=== PATIENT | female | born 1965 | race Caucasian/White ===

== ENCOUNTER 2019-03-25 10:34 | Emergency (ER) | payer OTHER, SELFPAY ==
--- NOTE | 2019-03-25 10:53 | ED.GENADULT ---
HPI - General Adult General Chief complaint: Upper Respiratory Infection Stated complaint: Sore Throat Time Seen by Provider: 03/25/19 11:01 Source: patient Mode of arrival: ambulatory Limitations: no limitations History of Present Illness HPI narrative: 53-year-old female patient presents to the [facility] with complaints of a sore throat that started yesterday. Patient denies any fevers that she is aware of. Patient states she has had a little bit of a stuffy nose runny nose and some drainage to the back the throat with a mild cough. Patient denies any chest pain or shortness of breath. Patient denies taking thing for her symptoms today. Patient states that she did get a flu shot this year. Patient denies being a smoker. Related Data Home Medications Medication Instructions Recorded Confirmed gabapentin 300 mg PO TID 03/25/19 03/25/19 hydrochlorothiazide 12.5 mg PO DAILY 03/25/19 03/25/19 metoprolol succinate 100 mg PO Q12H 03/25/19 03/25/19 Allergies Allergy/AdvReac Type Severity Reaction Status Date / Time No Known Allergies Allergy Verified 03/25/19 11:09 Review of Systems Review of Systems: Narrative: CONSTITUTIONAL: Denies fever, chills, or sweats. EYES: Denies visual changes, redness, or discharge. ENT: Positive rhinorrhea, congestion, sore throat, denies otalgia. CARDIOVASCULAR: Denies chest pain, palpitations, or edema. RESPIRATORY: Positive mild cough, denies dyspnea. GASTROINTESTINAL: Denies abdominal pain, nausea, vomiting, or diarrhea. GENITOURINARY: Denies dysuria or hematuria. SKIN: Denies rash or itching. MUSCULOSKELETAL: Denies back pain, joint pain, or myalgia. NEUROLOGIC: Denies headache, numbness, or weakness. PSYCHIATRIC: Denies anxiety or depression. [facility] Past Medical History Medical History (Updated 03/25/19 @ 11:18 by MAGUI Lemus) Anxiety Depression Hypercholesterolemia Hypertension Neuropathy Surgical History Surgical History (Updated 03/25/19 @ 11:11 by MAGUI Lemus) History of appendectomy History of cholecystectomy History of hysterectomy Hx of tonsillectomy Comments At the time of my signature I agree with nursing past medical history, surgical, social, and family history. There is no relevant family history pertinent to the presenting complaint. Exam Narrative: Exam Narrative: GENERAL: Well-appearing, well-nourished, and in no acute distress. HEAD: Normocephalic, atraumatic. Slight tenderness noted to maxillary sinuses on palpation. EYES: PERRLA and EOMI. ENT: Nares with erythema and edema noted bilaterally., no rhinorrhea or epistaxis. Mucous membranes moist. Posterior pharynx with some swelling and redness noted to the uvula. Bilateral TMs are clear with no erythema or foreign bodies in the canal. NECK: Supple. No lymphadenopathy CHEST: Clear to auscultation. No respiratory distress. HEART: Regular rate and rhythm. No murmur heard. Normal peripheral pulses. ABDOMEN: Soft, nontender, nondistended, normal active bowel sounds. EXTREMITIES: Normal range of motion. No edema. SKIN: Warm, dry, no rash. NEURO: No focal deficits. Alert and oriented x3. Course Reevaluation(s) Reevaluation #1: Notify patient that she is negative today for strep. Discussed with her this is most likely due to a virus or some sinus drainage that is causing her symptoms. Discussed with patient she can take an [id number] antihistamine as well as Flonase to help with those symptoms of drainage. Discussed with her she can do warm salt water gargles, hot tea and honey and Tylenol ibuprofen for the sore throat pain. Patient verbalized understanding denies any other questions or concerns at this time. Date: 03/25/19 Time: 11:18 Vital Signs Vital signs: Vital Signs Temperature 36.8 C 03/25/19 10:56 Pulse Rate 63 03/25/19 10:56 Respiratory Rate 14 03/25/19 10:56 Blood Pressure 141/81 H 03/25/19 10:56 Pulse Oximetry 98 03/25/19 10:56 Temperature 36
[2019-03-25 10:56] VITALS: BP 141/81; PULSE 63; RESP 14; TEMP 36.8; O2SAT 98
== END 2019-03-25 11:27 | disposition home or self-care (01) ==
PROVIDERS: Emergency Provider Nurse Practitioner Family
DX: J06.9 Acute upper respiratory infection, unspecified (principal); I10 Essential (primary) hypertension; E78.5 Hyperlipidemia, unspecified
CPT/HCPCS: 87081; 87880; 99213; G0463

== ENCOUNTER 2019-09-19 08:56 | Outpatient (CLI) | payer OTHER, SELFPAY | END 2019-09-19 08:57 | disposition home or self-care (01) | LOC: ANHAUDIO 08:58 | DX: H91.23 Sudden idiopathic hearing loss, bilateral (principal) | CPT/HCPCS: 92557; 92567 ==

== ENCOUNTER 2019-10-08 12:44 | Outpatient (RCR) | payer OTHER, SELFPAY | END 2019-10-08 23:59 | disposition home or self-care (01) | LOC: ANHAUDIO 12:44 | PROVIDERS: Visit Provider Family Medicine | DX: Z46.1 Encounter for fitting and adjustment of hearing aid (principal) | CPT/HCPCS: V5160; V5261; V5264 ==

== ENCOUNTER 2020-04-01 13:37 | Outpatient (RCR) | payer OTHER, SELFPAY | END 2020-06-30 23:59 | disposition home or self-care (01) | LOC: ANHBWCAUD 13:37 | PROVIDERS: PCP Family Medicine; Visit Provider Family Medicine | DX: Z46.1 Encounter for fitting and adjustment of hearing aid (principal) | CPT/HCPCS: 99199 ==

== ENCOUNTER 2022-11-04 15:32 | Emergency (ER) | payer MEDICAID, SELFPAY ==
--- NOTE | ~2022-11-04 | XR_ITS ---
EXAMINATION: XR ankle RT min 3V DATE: 11/04/2022 15:59 INDICATION: Right ankle pain. TECHNIQUE: 4 views of right ankle were obtained. COMPARISON: Right foot radiographs 03/30/17 FINDINGS: Bone alignment is normal. No fracture. There is mild midfoot osteoarthritis. There are enth esophytes at the posterior and plantar aspects of calcaneal tuberosity. IMPRESSION: 1. Mild midfoot osteoarthritis. Reviewed, dictated and finalized at location A.
[2022-11-04 15:45] VITALS: BP 139/86; PULSE 63; RESP 16; TEMP 36.4; O2SAT 99
--- NOTE | 2022-11-04 16:03 | ED.LOWEXIN ---
HPI - Extremity Injury (Lower) General Chief Complaint: Extremity Injury, Lower Stated Complaint: right ankle pain Time Seen by Provider: 11/04/22 16:04 Source: patient Mode of arrival: ambulatory Limitations: no limitations History of Present Illness HPI Narrative: 57-year-old female with hx HTN and neuropathy presented for complaint of right posterior ankle pain. Onset over 2 months. Pain is only when walking. She denies known injury or excessive use. She denies bruising, swelling. has taken an occasional pain pill. She denies numbness, tingling, weakness. She states she cannot tolerate the back of the ankle touching the mattress at night. Wearing supportive sandals because tennis shoes rub the back of the ankle as well. Related Data Home Medications Medication Instructions Recorded Confirmed gabapentin 300 mg capsule 300 mg PO TID 03/25/19 03/25/19 hydrochlorothiazide 12.5 mg tablet 12.5 mg PO DAILY 03/25/19 03/25/19 metoprolol succinate 100 mg 100 mg PO Q12H 03/25/19 03/25/19 tablet,extended release 24 hr hydrocodone 5 mg-acetaminophen 325 tablet 11/04/22 mg tablet lorazepam 0.5 mg tablet mg 11/04/22 metoprolol tartrate 100 mg tablet mg 11/04/22 oxybutynin chloride 5 mg tablet mg 11/04/22 pravastatin 40 mg tablet mg 11/04/22 risperidone 2 mg tablet mg 11/04/22 sertraline 100 mg tablet mg 11/04/22 tramadol 50 mg tablet mg 11/04/22 trazodone 100 mg tablet mg 11/04/22 Allergies Allergy/AdvReac Type Severity Reaction Status Date / Time No Known Allergies Allergy Verified 03/25/19 11:09 Review of Systems Review of Systems: CONSTITUTIONAL: Denies body aches, fever, chills EYES: Denies visual changes ENT: Denies rhinorrhea, congestion CARDIOVASCULAR: Denies chest pain, palpitations, or edema. RESPIRATORY: Denies cough or dyspnea. GASTROINTESTINAL: Denies abdominal pain, nausea, vomiting, or diarrhea. SKIN: Denies rash, itching, or wounds. MUSCULOSKELETAL: Reports right posterior ankle pain Denies back pain, joint pain, or myalgia. NEUROLOGIC: Denies headache, numbness, tingling, or weakness. All systems reviewed & are unremarkable except as noted in HPI and below PMFSH Past Medical History Medical History Anxiety Depression Hypercholesterolemia Hypertension Neuropathy Surgical History Surgical History History of appendectomy History of cholecystectomy History of hysterectomy Hx of tonsillectomy Comments At time of signature, I have reviewed and agree with nursing past medical, surgical, social and family history unless otherwise noted. Please see nursing chart for further information. There is no relevant family history pertinent to the presenting complaint Exam Narrative: GENERAL: Well-appearing, well-nourished, and in no acute distress. HEAD: Normocephalic, atraumatic. CHEST: Speaks in full sentences. No respiratory distress. HEART: Regular rate and rhythm. Normal and equal peripheral pulses. EXTREMITIES: Right posterior ankle tender at insertion site of achilles; right foot has normal strength and sensation, normal range of motion at ankle without pain reported. No swelling redness, or ecchymosis, No open wounds, or obvious deformity; alignment normal, pulse palpable and equal bilaterally, skin warm, dry, pink. Capillary refill less than 3 seconds. SKIN: Warm, dry, no rash. NEURO: Alert and oriented x3. PSYCH: Normal mood and affect Course Course Emergency Course: Patient is aware of diagnosis, understands and agrees to treatment plan. Anticipatory guidance given. Patient agrees to follow-up as directed and is aware of reasons to seek care at the emergency department. Portions of this record may have been created with voice recognition software Level of Care: Express Care Visit Vital Signs Vital signs: Vital Signs Temperature 97.5 F L
== END 2022-11-04 16:24 | disposition home or self-care (01) ==
PROVIDERS: Emergency Provider Nurse Practitioner Family; PCP Family Medicine
DX: M76.61 Achilles tendinitis, right leg (principal); E78.00 Pure hypercholesterolemia, unspecified; I10 Essential (primary) hypertension; G62.9 Polyneuropathy, unspecified
CPT/HCPCS: 73610; 99213; G0463

== ENCOUNTER 2024-01-20 14:05 | Emergency (ER) | payer MEDICARE, SELFPAY ==
[2024-01-20 14:26] VITALS: BP 135/96; PULSE 70; RESP 18; TEMP 37.1; O2SAT 97
--- NOTE | 2024-01-20 14:30 | ED_ITS ---
HPI - URI/Sore Throat General Chief Complaint: Upper Respiratory Infection Stated Complaint: Sinus Problem/Cough/Vomiting Time Seen by Provider: 01/20/24 14:30 Source: patient and RN notes reviewed Mode of arrival: ambulatory Limitations: no limitations History of Present Illness HPI Narrative: 58-year-old female presented for complaint headache, body aches, sinus pressure/congestion, cough, Nausea vomiting, fever/chills. onset 3 days. last emesis was earlier today.Denies Abdominal pain, sob, wheezing, chest pain, palpitations or lethargy. She is taking [id number] medicine for symptoms. MD elicited complaint: cough Related Data Home Medications Medication Instructions Recorded Confirmed hydrochlorothiazide 12.5 mg tablet 12.5 mg PO DAILY 03/25/19 01/20/24 metoprolol succinate 100 mg 100 mg PO Q12H 03/25/19 01/20/24 tablet,extended release 24 hr oxybutynin chloride 5 mg tablet 5 mg PO DAILY 11/04/22 01/20/24 pravastatin 40 mg tablet 40 mg PO BID 11/04/22 01/20/24 risperidone 2 mg tablet 2 mg PO DAILY 11/04/22 01/20/24 trazodone 100 mg tablet mg 11/04/22 meloxicam 15 mg tablet 15 mg PO DAILY PRN Dizziness Or 01/20/24 01/20/24 Vertigo sertraline 100 mg tablet 100 mg PO DAILY 01/20/24 01/20/24 Allergies Allergy/AdvReac Type Severity Reaction Status Date / Time No Known Allergies Allergy Verified 03/25/19 11:09 Review of Systems Review of Systems: CONSTITUTIONAL: Endorses malaise, chills, sweats, fever EYES: Denies visual changes, redness, or discharge ENT: Reports rhinorrhea, congestion, sinus pain, otalgia, sore throat CARDIOVASCULAR: Denies chest pain, palpitations, edema RESPIRATORY: Reports cough, post nasal drainage. Denies dyspnea GASTROINTESTINAL: Denies abdominal pain, reports nausea, vomiting MUSCULOSKELETAL: Endorses myalgia PMFSH Past Medical History Medical History Anxiety Depression Hypercholesterolemia Hypertension Neuropathy Surgical History Surgical History History of appendectomy History of cholecystectomy History of hysterectomy Hx of tonsillectomy Exam Narrative: GENERAL: mildly Ill-appearing, nontoxic no acute distress. EYES: PERRLA, conjunctivae clear ENT: Mucous membranes moist. TMs pearly wan with dull light reflex bilaterally; no tragal tenderness. Oropharynx erythematous without lesions or exudate, no drooling, no hoarseness, no trismus, uvula midline. No tripod positioning, muffled voice, soft palate or pharyngeal wall bulging NECK: Supple. No lymphadenopathy CHEST: Clear to auscultation, breath sounds equal. 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 No wheezing, rhonchi, rales, or stridor. No respiratory distress, speaks in full sentences. HEART: Regular rate and rhythm. No murmur heard. SKIN: Warm, dry, no rash. NEURO: Alert and oriented x3. PSYCH: Normal mood and affect Course Course Emergency Course: Patient is aware of diagnosis, understands and agrees to treatment plan. Anticipatory guidance given. Patient agrees to follow-up as directed and is aware of reasons to seek care at the emergency department. Portions of this record may have been created with voice recognition software Level of Care: Express Care Visit Vital Signs Vital signs: Vital Signs Temperature 98.8 F 01/20/24 14:26 Pulse Rate 70 01/20/24 14:26 Respiratory Rate 18 01/20/24 14:26 Blood Pressure 135/96 H 01/20/24 14:26 Pulse Oximetry 97 01/20/24 14:26 Temperature 98.8 F 01/20/24 14:26 Pulse Rate 70 01/20/24 14:26 Respiratory Rate 18 01/20/24 14:26 Blood Pressure 135/96 H 01/20/24 14:26 Pulse Oximetry 97 01/20/24 14:26 reviewed MDM - URI/Sore Throat MDM Narrative Medical decision making narrative: POS covid. Discussed physical exam findings. Advised supportive measures and signs/symptoms to go to the ER. Pt is appropriate for outpt treatment and f/u. Differential Diagnosis Differential diagnosis: Likely upper respiratory infection, sinusitis and viral infection Lab Data Labs: Lab Results 01/20/24 Range/Units 14:40 POC Influenza A Ag Negative (Negative) POC Influenza B Ag Negative (Negative) POC SARS CoV-2 Ag Positive (Negative) Discharge Plan Discharge Clinical Impression: COVID-19 Patient Disposition: Home, Self-Care Condition: Stable Instructions: COVID-19 (Coronavirus Disease 2019) (ED) Additional Instructions: Your rapid COVID test was positive today. The following updated recommendations have been made by the CDC and local Health Departments, regarding COVID-19: - When people get sick with a respiratory virus, they stay home and away from others. - Return to normal activities when, for at least 24 hours, symptoms are improving overall, and if a fever was present, it has been gone without use of a fever-reducing medication. - Once people resume normal activities, they are encouraged to take additional prevention strategies for the next 5 days to curb disease spread, such as taking more steps for laboratory equipment cleaner air, enhancing hygiene practices, wearing a well-fitting mask, keeping a distance from others, and/or getting tested for respiratory viruses. - Enhanced precautions are especially important to protect those most at risk for severe illness, including those over 65 and people with weakened immune systems. Rest, stay hydrated. Tylenol and ibuprofen every 8 hours as needed Flonase/nasal spray, Zyrtec, cough syrup cold/flu medications for symptoms as needed Follow up with your primary care provider, call to schedule an appointment. Go to the ER for worsening symptoms or concerns. Prescriptions: New prednisone 50 mg tablet 50 mg PO DAILY Qty: 5 0RF ondansetron 4 mg tablet,disintegrating 4 mg PO Q8H PRN (Reason: nausea and vomiting) Qty: 20 0RF No Action sertraline 100 mg tablet 100 mg PO DAILY meloxicam 15 mg tablet 15 mg PO DAILY PRN (Reason: Dizziness Or Vertigo) metoprolol succinate 100 mg Tablet Extended Release 24 Hr 100 mg PO Q12H gabapentin 300 mg Capsule 300 mg PO TID hydrochlorothiazide 12.5 mg Tablet 12.5 mg PO DAILY hydrocodone-acetaminophen 5-325 mg tablet pravastatin 40 mg tablet 40 mg PO BID tramadol 50 mg tablet risperidone 2 mg tablet 2 mg PO DAILY lorazepam 0.5 mg tablet trazodone 100 mg tablet oxybutynin chloride 5 mg tablet 5 mg PO DAILY ibuprofen 800 mg tablet 800 mg PO TID PRN (Reason: pain) Qty: 20 0RF Follow-up/Referrals: Constantine,Tarik Zheng MD [Primary Care Provider] - Time of Disposition: 14:49
[2024-01-20 14:43] LABS: EDCOVIDSCREEN Positive (Negative); EDINFLUASCREEN Negative (Negative); EDINFLUBSCREEN Negative (Negative)
[2024-01-20 14:50] VITALS: BP 135/96; PULSE 70; RESP 18; TEMP 37.1; O2SAT 97
== END 2024-01-20 14:53 | disposition home or self-care (01) ==
PROVIDERS: Emergency Provider Nurse Practitioner Family; PCP Family Medicine
DX: U07.1 COVID-19 (principal); I10 Essential (primary) hypertension; E78.00 Pure hypercholesterolemia, unspecified; F41.9 Anxiety disorder, unspecified; F32.A Depression, unspecified; G62.9 Polyneuropathy, unspecified
CPT/HCPCS: 87426; 87804; 99213; G0463